=== PATIENT | female | born 1995 | race Two or more races ===

== ENCOUNTER 2017-08-23 15:20 | Emergency (ER) | payer MEDICAID ==
[~2017-08-23] VITALS: Ht 160 cm; Wt 77.1 kg
[~2017-08-23 15:20] MED LIST: BLOO-668 IN; METF500T4 PO
[2017-08-23 15:31] VITALS: BP 139/80
[2017-08-23] MEDS ORDERED: LIDOCAINE/PRILOCAINE (5GM) 5 GM TUBE TP ONE ×2 (16:30→17:02)
== END 2017-08-23 17:42 | disposition home or self-care (01) ==
LOC: ER 15:24
DX: N89.8 Other specified noninflammatory disorders of vagina (principal); N82.8 Other female genital tract fistulae; E11.9 Type 2 diabetes mellitus without complications; Z86.19 Personal history of other infectious and parasitic diseases; Z88.0 Allergy status to penicillin; Z79.84 Long term (current) use of oral hypoglycemic drugs
CPT/HCPCS: 36415; 87210; 87491; 87591; 99284; A4606; Z7610

== ENCOUNTER 2017-08-26 05:57 | Emergency (ER) | payer MEDICAID ==
[~2017-08-26] VITALS: Ht 160 cm; Wt 79.4 kg
--- NOTE | 2017-08-26 06:05 | NUR ---
PT PRESENTED TO THE ER WITH A C/O VAGINAL PAIN, DISCHARGE, AND SORES SINCE THURSDAY. 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
[2017-08-26] MEDS ORDERED: HYDROMORPHONE INJ 2 MG/ML DISP.SYRIN ONE (06:15)
[2017-08-26] MEDS ORDERED: ONDANSETRON HCL/PF 4 MG/2 ML VIAL ONE (06:16)
--- NOTE | 2017-08-26 06:18 | NUR ---
DR. RAMÍREZ IS AT THE BEDSIDE EXAMINING THE PT. Female hand violin maker accompanied female patient for DR. RAMÍREZ.
[2017-08-26] MEDS ORDERED: ONDANSETRON HCL/PF - ER 4 MG/2 ML VIAL IV ONE (06:30)
[2017-08-26] MEDS ORDERED: HYDROMORPHONE 1 MG/1 ML DISP.SYRIN IV ONE (06:30)
--- NOTE | 2017-08-26 06:33 | NUR ---
20G IV STARTED IN LT HAND.
--- NOTE | 2017-08-26 06:54 | NUR ---
IV removed. Catheter intact and site benign. Pressure and 4x4 applied to site. No bleeding noted.Patient discharged to home in stable condition. Written and verbal after care instructions given. Patient verbalizes understanding of instruction. PT AMBULATED TO THE BATHROOM WITH A STEADY GAIT. VSS.
[2017-08-26 06:58] VITALS: BP 116/82
== END 2017-08-26 07:19 | disposition home or self-care (01) ==
LOC: ER 05:57
DX: A60.00 Herpesviral infection of urogenital system, unspecified (principal); E11.9 Type 2 diabetes mellitus without complications; Z88.0 Allergy status to penicillin
CPT/HCPCS: 96374; 96375; 99284; A4606; J1170; J2405 ×2; Z7610

== ENCOUNTER 2017-08-26 16:31 | Emergency (ER) | payer MEDICAID ==
[~2017-08-26] VITALS: Ht 160 cm; Wt 79.4 kg
[2017-08-26 17:06] VITALS: BP 150/94
[2017-08-26] MEDS ORDERED: HYDROMORPHONE INJ 2 MG/ML DISP.SYRIN ONE (17:12)
[2017-08-26] MEDS ORDERED: HYDROMORPHONE 1 MG/1 ML DISP.SYRIN IM ONE (17:30)
== END 2017-08-26 17:38 | disposition home or self-care (01) ==
LOC: ER 16:34
DX: A60.00 Herpesviral infection of urogenital system, unspecified (principal); R10.2 Pelvic and perineal pain; E11.9 Type 2 diabetes mellitus without complications; Z88.0 Allergy status to penicillin; Z79.84 Long term (current) use of oral hypoglycemic drugs; E66.8 Other obesity
CPT/HCPCS: 96372; 99283; A4606; J1170; Z7610

== ENCOUNTER 2018-07-25 13:10 | Inpatient (IN) | payer MEDICAID, OTHER ==
[~2018-07-25] VITALS: Ht 157.5 cm; Wt 83.9 kg
[~2018-07-25 13:10] MED LIST changes: +METF-440 PO; -METF500T4 PO
[2018-07-25] MEDS ORDERED: FAMOTIDINE/PF INJ 20 MG/2 ML VIAL IV ONE ×2 (13:30→13:34)
[2018-07-25] MEDS ORDERED: MORPHINE SULFATE INJ 2 MG/ML DISP.SYRIN IV ONE (13:30)
[2018-07-25] MEDS ORDERED: IV NS 0.9% 1,000 ML BAG IV ONE (13:30)
[2018-07-25] MEDS ORDERED: ONDANSETRON HCL/PF 4 MG/2 ML VIAL IVP ONE (13:30)
[2018-07-25] MEDS ORDERED: MORPHINE SULFATE INJ 4 MG/ML DISP.SYRIN ONE ×2 (13:33)
[2018-07-25] MEDS ORDERED: ONDANSETRON HCL/PF 4 MG/2 ML VIAL ONE ×2 (13:34→17:05)
[2018-07-25 13:37] LABS: BASOPHILS # (AUTO) 0.1 /CMM (0.0-0.2); BASOPHILS % (AUTO) 0.7 % (0.0-2.0); EOSINOPHILS % (AUTO) 0.2 % (0.0-6.0); HEMATOCRIT 47 % (33-45); HEMOGLOBIN 15.8 g/dL (11.5-14.8); LYMPHOCYTES # (AUTO) 0.9 /CMM (0.8-4.8); LYMPHOCYTES % (AUTO) 7.2 % (20.0-44.0); MEAN CORPUSCULAR HGB CONC 33 g/dl (31.0-36.0); MEAN CORPUSCULAR VOLUME 84 fL (82-100); MONOCYTES # (AUTO) 0.2 /CMM (0.1-1.30); MONOCYTES % (AUTO) 1.8 % (2.0-12.0); NEUTROPHILS # (AUTO) 11.5 /CMM (1.8-8.9); NEUTROPHILS % (AUTO) 90.1 % (43.0-81.0); PLATELET COUNT (AUTO) 240 /CMM (150-450); RED BLOOD CELL COUNT(AUTO) 5.64 MIL/uL (4.0-5.2); WHITE BLOOD COUNT (AUTO) 12.7 K/uL (4.3-11.0)
[2018-07-25 13:45] LABS: BILIRUBIN,URINE SMALL (NEGATIVE); BLOOD, URINE Large Ery/uL (NEGATIVE); COLOR,URINE Dark (YELLOW); KETONES,URINE >=160 (NEGATIVE); LEUKOCYTE ESTERASE ,URINE Negative (NEGATIVE); NITRITE, URINE Negative (NEGATIVE); PROTEIN,URINE Negative (NEGATIVE); UGLUCOSE 500 MG/DL mg/dL (NEGATIVE); UROBILINOGEN,URINE 0.2 EU/dL (0.2)
[2018-07-25 13:51] LABS: ALBUMIN 3.7 g/dL (3.4-5.0); APPEARANCE,URINE Clear (CLEAR); BILIRUBIN,DIRECT 0.3 mg/dL (0.0-0.2); BILIRUBIN,TOTAL 2.4 mg/dL (0.2-1.0); CALCIUM, SERUM 8.6 mg/dL (8.5-10.1); CREATININE 0.6 mg/dL (0.6-1.3); POTASSIUM 3.7 mmol/L (3.5-5.1); TOTAL PROTEIN, SERUM 7.8 g/dL (6.4-8.2)
--- NOTE | 2018-07-25 13:52 | NUR ---
c/o diffuse abdominal pain, nausea and vomiting x last night. PT AAOX3, VSS. PT STS SHE'S UNABLE TO KEEP ANYTHING SINCE LAST NIGHT. DENIES CP, SOB, DIZZINESS, DIARRHEA @ THIS TIME. PT SEEN & EVAL'D BY LUCINDA ARIAS. MEDICATED FOR PAIN & NAUSEA. WILL CONT TO MONITOR.
[2018-07-25 13:58] LABS: BACTERIA,URINE Few /HPF (None Seen); SQUAMOUS EPITHELIAL CELL,UR Few /HPF (None Seen); WBC,URINE 0-2 /HPF (0-3)
--- NOTE | 2018-07-25 15:58 | NUR ---
Spoke with nursing incinerator plant general supervisor to requisition and Med-surg bed for choledocholithiasis. She informed me that she would call back. Call to admitting physician pending.
[2018-07-25] MEDS ORDERED: IOHEXOL-300 100 ML VIAL IV ONE (16:11)
[2018-07-25] MEDS ORDERED: CT SWABBABLE VALVE TRANS SET 1 EA INFUS.SET MC ONE (16:12)
[2018-07-25] MEDS ORDERED: IV NS 0.9% 250 ML IV ONE (16:12)
[2018-07-25] MEDS ORDERED: FLUO40CA8 PO (16:27)
[2018-07-25] MEDS ORDERED: INSU100V27 SQ (16:27)
--- NOTE | 2018-07-25 16:30 | NUR ---
Called [facility] medical group and spoke with Enrique who got me conntected to Dr. Easton. FWDed call to Arianna Loera PA-C. She discussed the case with Dr. Easton who accepted the patient for admission. The patient has a bed at 306-1
[2018-07-25] MEDS ORDERED: LEVOFLOXACIN 750 MG /D5W 150ML 150 ML IV ONE (17:00)
[2018-07-25] MEDS ORDERED: METRONIDAZOLE 500MG/ NS 100ML 100 ML IV ONE (17:00)
[2018-07-25] MEDS ORDERED: Z GUARD REMEDY 2 OZ OINT TP PRN (17:00)
[2018-07-25] MEDS ORDERED: ACETAMINOPHEN 325 MG TABLET PO PRN (17:00)
[2018-07-25] MEDS ORDERED: MAG HYDROX/AL HYDROX/SIMETH 30 ML UDC PO PRN (17:00)
[2018-07-25] MEDS ORDERED: ZOLPIDEM TARTRATE 5 MG TABLET PO PRN (17:00)
[2018-07-25] MEDS ORDERED: MAGNESIUM HYDROXIDE 30 ML UDC PO PRN (17:00)
[2018-07-25] MEDS ORDERED: ONDANSETRON HCL/PF 4 MG/2 ML VIAL IVP PRN (17:00)
--- NOTE | 2018-07-25 17:07 | NUR ---
Report given to Tootie ELLIS for continuity of care on MS unit.
[2018-07-25 17:15] VITALS: BP 118/71
[2018-07-25] MEDS ORDERED: DEXTROSE 50%-WATER 50 ML DISP.SYRIN IV PRN (17:30)
[2018-07-25] MEDS ORDERED: diphenhydrAMINE HCL 50 MG/ML VIAL IV PRN (17:30)
[2018-07-25] MEDS ORDERED: PROCHLORPERAZINE EDISYLATE 10 MG/2 ML VIAL IVP PRN (17:30)
[2018-07-25] MEDS ORDERED: INSULIN REGULAR, HUMAN 100 UNIT/ML 3 ML VIAL SQ PRN (17:30)
[2018-07-25] MEDS ORDERED: ONDANSETRON HCL/PF 4 MG/2 ML VIAL IV PRN (17:30)
[2018-07-25] MEDS ORDERED: *INSULIN REGULAR(HUMULIN R)HUM 100 UNIT/ML VIAL SQ PRN (17:30)
--- NOTE | 2018-07-25 17:30 | NUR ---
MS AGRICULTURAL TECHNICAL OFFICER NOTE PT ARRIVED VIA WHEELCHAIR IN STABLE CONDITION ACCOMPANIED BY ER STAFF. PT IS A/O X4, AFEBRILE. RESPIRATIONS ARE EVEN AND UNLABORED, NOT IN ANY ACUTE DISTRESS NOTED. PUPILS ARE REACTIVE TO LIGHT. BILATERAL HAND TERRA COTTA ROOFER ARE STRONG AND EQUAL. ABDOMEN IS SOMEWHAT TENDER TO RIGHT QUADRANTS, C/O PAIN 6/10. DENIES ANY BLADDER DISCOMFORT. PT IS AMBULATORY AND CONTINENT. LAST BM 07/24/18. IV ACCESS TO LAC 20G, NO INFILTRATION NOTED. DRESSING KEPT CLEAN AND DRY. ID BANDS ARE PLACED. DR. BEY MADE AWARE OF ADMISSION. INSTRUCTED PT TO USE CALL LIGHT WHEN ASSISTANCE IS NEEDED, CALL LIGHT IS LEFT WITHIN REACH. SAFETY MEASURES ARE IN PLACE. WILL CONTINUE TO MONITOR THROUGHOUT SHIFT.
[2018-07-25] MEDS: IV NS 0.9% 1,000 ML IV PRN (17:32)
--- NOTE | 2018-07-25 17:38 | NUR ---
LEVAQUIN 750 MG IVPB NOT GIVEN, ENDORSED TO CALEB SHAY & WILL START ABX IN FLOOR.
[2018-07-25] MEDS: BLOOD SUGAR DIAGNOSTIC 1 EACH STRIP VI SCH ×2 (17:41→22:03)
--- NOTE | 2018-07-25 19:30 | NUR ---
RN MS OPENING NOTES RECEIVED PATIENT IN BED AWAKE. ALERT AND ORIENTED X4, VERBALLY RESPONSIVE, ABLE TO MAKE NEEDS KNOWN. BREATHING EVEN AND UNLABORED. NO SOB NOTED. TOLERATING ROOM AIR. WITH COMPLAINTS OF PAIN IN THE ABDOMEN 04/13 - WILL CLARIFY WITH MD REGARDING NPO STATUS EXCEPT MEDS SINCE PATIENT ONLY HAS NORCO FOR PAIN MANAGEMENT. IV ACCESS ON THE LEFT AC#20 INTACT AND PATENT WITH NS RUNNING AT 75ML/HR. SKIN DRY AND WARM TO TOUCH. AFEBRILE. ALL OTHER NEEDS ATTENDED TO. SAFETY MEASURES IN PLACE. CALL LIGHT WITHIN REACH. WILL CONTINUE TO MONITOR.
--- NOTE | 2018-07-25 19:41 | NUR ---
MS RN CLOSING NOTES NEEDS MET AND ANTICIPATED. PT REMAINS A/O X4, AFEBRILE. RESPIRATIONS ARE EVEN AND UNLABORED, NOT IN ANY ACUTE DISTRESS NOTED. NO C/O SOB, N/V. PT STATES "PAIN IS TOLERABLE, BUT MAY NEED SOME LATER." IV SITE INTACT, NO INFILTRATION NOTED. DRESSING KEPT CLEAN AND DRY. PT WAS SEEN BY DR. QUESADA W/ ORDERS FOR HIDA SCAN AND KEEP PT NPO. ENDORSED TO NEXT SHIFT FOR CONTINUITY OF CARE.
[2018-07-25 20:00] VITALS: BP 117/66
--- NOTE | 2018-07-25 20:02 | NUR ---
RN MS NOTES CLARIFIED WITH DR. QUESADA REGARDING NPO STATUS. INFORMED DR. QUESADA THAT PATIENT WILL LIKELY ASK FOR NORCO. PER DR. QUESADA, PATIENT IS TO BE NPO EXCEPT MEDS. ORDER NOTED AND CARRIED OUT.
--- NOTE | 2018-07-25 20:25 | NUR ---
RN NOTES RECEIVED PT. FROM ANOTHER NURSE, PT IS A/OX4, AMBULATORY, IV FLUID NS RUNNING @ 75ML/HR, DENIES PAIN AT THIS TIME NO SOB CALL LIGHT WITHIN REACH, [id number], WILL CONTINUE TO MONITOR
[2018-07-25] MEDS: HYDROCODONE/APAP 5/325MG 1 EACH TABLET PO PRN (20:30)
--- NOTE | 2018-07-25 20:33 | NUR ---
RN NOTES COMPLAINED OF ABDOMINAL PAIN- NORCO 5/325MG PO GIVEN ORDERED, V/S STABLE
[2018-07-26] MEDS: METRONIDAZOLE 500MG/ NS 100ML 500 MG in PREMIX 1 EA IV SCH ×3 (00:25→16:00)
[2018-07-26 06:20] LABS: BASOPHILS % (AUTO) 0.3 % (0.0-2.0); EOSINOPHILS % (AUTO) 1.9 % (0.0-6.0); HEMATOCRIT 41 % (33-45); HEMOGLOBIN 13.7 g/dL (11.5-14.8); LYMPHOCYTES # (AUTO) 1.5 /CMM (0.8-4.8); LYMPHOCYTES % (AUTO) 22.7 % (20.0-44.0); MEAN CORPUSCULAR HGB CONC 33 g/dl (31.0-36.0); MEAN CORPUSCULAR VOLUME 86 fL (82-100); MONOCYTES # (AUTO) 0.6 /CMM (0.1-1.30); MONOCYTES % (AUTO) 9.2 % (2.0-12.0); NEUTROPHILS # (AUTO) 4.3 /CMM (1.8-8.9); NEUTROPHILS % (AUTO) 65.9 % (43.0-81.0); PLATELET COUNT (AUTO) 209 /CMM (150-450); RED BLOOD CELL COUNT(AUTO) 4.83 MIL/uL (4.0-5.2); WHITE BLOOD COUNT (AUTO) 6.6 K/uL (4.3-11.0)
[2018-07-26 06:22] LABS: ALBUMIN 2.8 g/dL (3.4-5.0); BILIRUBIN,TOTAL 1.3 mg/dL (0.2-1.0); CREATININE 0.5 mg/dL (0.6-1.3); MAGNESIUM 1.5 mg/dL (1.8-2.4); PHOSPHORUS 2.6 mg/dL (2.5-4.9); POTASSIUM 3.4 mmol/L (3.5-5.1); TOTAL PROTEIN, SERUM 6.4 g/dL (6.4-8.2)
--- NOTE | 2018-07-26 06:44 | NUR ---
RN NOTES PT. IS SLEEPING BUT AROUSABLE, DENIES PAIN, NO SOB, CALL LIGHT WITHIN REACH, [id number], PT. NEEDS ATTENDED
--- NOTE | 2018-07-26 07:39 | NUR ---
MS RN OPENING NOTES RECEIVED PT LAYING IN BED, SLEEPING COMFORTABLY, EASILY AROUSABLE. PT REMAINS A/O X4, AFEBRILE. RESPIRATIONS ARE EVEN AND UNLABORED, NOT IN ANY ACUTE DISTRESS NOTED. NO C/O SOB, N/V. IV SITE INTACT, NO INFILTRATION NOTED. DRESSING KEPT CLEAN AND DRY. INSTRUCTED PT TO USE CALL LIGHT WHEN ASSISTANCE IS NEEDED, CALL LIGHT IS LEFT WITHIN REACH. WILL CONTINUE TO MONITOR THROUGHOUT SHIFT FOR CONTINUITY OF CARE.
[2018-07-26 07:59] VITALS: BP 107/70
[2018-07-26] MEDS: BLOOD SUGAR DIAGNOSTIC 1 EACH STRIP VI SCH ×4 (07:59→21:58)
[2018-07-26 08:00] VITALS: BP 107/70
[2018-07-26] MEDS: POTASSIUM CL. PREMIX PERIPHER. 50 ML IV SCH ×4 (08:00→15:44)
[2018-07-26] MEDS: HYDROCODONE/APAP 5/325MG 1 EACH TABLET PO PRN ×2 (08:30→16:31)
[2018-07-26] MEDS: Magnesium 1GM/D5W 100ML PREMIX 100 ML IV SCH ×2 (09:00→11:09)
--- NOTE | 2018-07-26 11:05 | NUR ---
MS RN NOTES-- PT P/U BY RADIOLOGY FOR HIDA SCAN VIA WHEELCHAIR IN STABLE CONDITION.
--- NOTE | 2018-07-26 12:47 | NUR ---
MS RN NOTES-- PT CAME BACK FROM RADIOLOGY IN STABLE CONDITION. PER BEN, IT IS NEGATIVE. NOTIFIED DR. QUESADA RE: HIDA SCAN RESULTS.
--- NOTE | 2018-07-26 13:12 | NUR ---
MS RN NOTES-- NPO TO LOW FAT DIET PER DR. QUESADA.
[2018-07-26] MEDS: IV NS 0.9% 1,000 ML IV PRN (15:13)
[2018-07-26 15:57] VITALS: BP 107/60
[2018-07-26] MEDS: ONDANSETRON HCL/PF 4 MG/2 ML VIAL IV PRN (16:34)
[2018-07-26] MEDS ORDERED: LEVOFLOXACIN 500 MG /D5W 100ML 500 MG in PREMIX 1 EA IV SCH (17:00)
--- NOTE | 2018-07-26 18:25 | NUR ---
MS RN CLOSING NOTES ALL DUE MEDS GIVEN, NEEDS MET AND RENDERED. PT REMAINS A/O X4, AFEBRILE. RESPIRATIONS ARE EVEN AND UNLABORED, NOT IN ANY ACUTE DISTRESS NOTED. NO C/O SOB, N/V. INSERTED NEW PERIPHERAL IV SITE TO RIGHT HAND, DRESSING KEPT CLEAN AND DRY. INFUSING FLUIDS, TOLERATING WELL. REMINDED PT TO USE CALL LIGHT IS LEFT WITHIN REACH. WILL ENDORSE TO NEXT SHIFT FOR CONTINUITY OF CARE.
--- NOTE | 2018-07-26 19:25 | NUR ---
MS/RN NOTES RECEIVED PT. LYING IN BED. PT. IS AWAKE, ALERT AND ORIENTED X4. BREATHING EVEN AND UNLABORED ON ROOM AIR. NO SOB, RESPIRATORY DISTRESS OR COMPLAINTS OF PAIN NOTED AT THIS TIME. NO COMPLAINTS OF NAUSEA OR VOMITING NOTED AT THIS TIME. PT. WITH RIGHT HAND 20 GAUGE PERIPHERAL IV PRESENT, PATENT AND INTACT ADMINISTERING TO PT. NS @ 75 ML/HR. PER DAYSHIFT NURSE PT. WILL BE NPO AFTER MIDNIGHT PENDING EGD TOMORROW. CONSENT SIGNED AND PLACED IN PT. CHART. BED LOCKED AND IN LOWEST POSITION, SIDE RAILS UP X2, CALL LIGHT WITHIN REACH, WILL CONTINUE TO MONITOR.
[2018-07-26 20:01] VITALS: BP 116/77
[2018-07-27] MEDS: METRONIDAZOLE 500MG/ NS 100ML 500 MG in PREMIX 1 EA IV SCH ×2 (00:47→08:39)
[2018-07-27] MEDS: ONDANSETRON HCL/PF 4 MG/2 ML VIAL IV PRN ×2 (00:47→10:26)
[2018-07-27 07:17] LABS: INR 0.97 (0.87-1.13)
[2018-07-27] MEDS: BLOOD SUGAR DIAGNOSTIC 1 EACH STRIP VI SCH ×2 (07:48→12:00)
--- NOTE | 2018-07-27 07:58 | NUR ---
MS/RN NOTES PT. IS LYING IN BED RESTING. BREATHING EVEN AND UNLABORED ON ROOM AIR. NO SOB, RESPIRATORY DISTRESS OR COMPLAINTS OF PAIN NOTED AT THIS TIME. PT. WITH RIGHT HAND 20 GAUGE PERIPHERAL IV PRESENT, PATENT AND INTACT ADMINISTERING TO PT. NS @ 75 ML/HR. PT. REMAINS NPO SINCE MIDNIGHT PENDING EGD TODAY. ALL PT. NEEDS MET. BED LOCKED AND IN LOWEST POSITION, SIDE RAILS UP X2, CALL LIGHT WITHIN REACH, WILL ENDORSE TO DAYSHIFT NURSE FOR CONTINUITY OF CARE.
[2018-07-27 08:00] VITALS: BP 111/78
--- NOTE | 2018-07-27 08:00 | NUR ---
m/s aluminizer: initial assessment received pt in bed asleep, but easily arousable. remains npo, pt for egd this afternoon. pt for d'c planning and pt aware. instructed to call for assistance. will continue to monitor.
--- NOTE | 2018-07-27 09:00 | NUR ---
m/s welding machine operator resistance: md visit seen and examined by dr. edmonds at this time. informed pt by re: d'c planning today after egd, pt verbalized understanding. pt remains npo. pt refusing iv fluids. instructed to call for assistance. will monitor.
--- NOTE | 2018-07-27 12:20 | NUR ---
m/s corn husk baler: notes taken down to o.r. via bed at this time with chart.
[2018-07-27] MEDS ORDERED: PANT40TA2 PO (12:53)
[2018-07-27 13:35] VITALS: BP 97/61
--- NOTE | 2018-07-27 13:35 | NUR ---
m/s screw down: notes received pt from recovery room with dx: s/p egd with findings: gastritis, duodenitis, and gastric erosion per recovery nurse report at bedside. pt awake, but sleepy. vital signs taken wnl for self. no c/o n/v at this time. lunch served. hob elevated. instructed to call for assistance. will continue to monitor.
--- NOTE | 2018-07-27 13:55 | NUR ---
m/s orthopaedic doctor: notes received order from dr. edmonds to d'c pt after egd if clear by gi. order acknowledged. dr. tolentino (gi) notified and informed him that dr. edmonds wants to discharge pt home today if clear by you, stated, "yes she can go, she can take ppi everyday." will continue to monitor.
--- NOTE | 2018-07-27 14:30 | NUR ---
m/s fitness centre manager: notes pt aware of d'c planning today, but wants to rest a bit and will go home in a couple of hours as stated. instructed to call for assistance. will monitor.
[2018-07-27 16:00] VITALS: BP_SYST 108; BP_SYST 143; BP_DIAS 66; BP_DIAS 85
--- NOTE | 2018-07-27 16:25 | NUR ---
m/s stage set designer: d'c instructions discharged instructions given to pt with prescription and educated pt to avoid milk products and nsaids medications; pt verbalized understanding. pt will f/u with her primary medical doctor and the need for outpatient procedure for elective cholecystectomy as stated. h/l removed with tip intact with no bleeding, no redness, and no swelling noted. awaiting for friend to pick her up.
--- NOTE | 2018-07-27 17:00 | NUR ---
m/s milk deliverer: discharged discharged home in stable condition accompanied by family via private car.
== END 2018-07-27 17:00 | disposition home or self-care (01) ==
LOC: ER 13:12 → MED 16:56
PROVIDERS: ADMIT Internal Medicine; ATTEND Internal Medicine
DX: K80.12 Calculus of gallbladder with acute and chronic cholecystitis without obstruction (principal); K76.0 Fatty (change of) liver, not elsewhere classified; E10.9 Type 1 diabetes mellitus without complications; E66.9 Obesity, unspecified; E78.5 Hyperlipidemia, unspecified; D72.829 Elevated white blood cell count, unspecified; F43.10 Post-traumatic stress disorder, unspecified; Z68.33 Body mass index [BMI] 33.0-33.9, adult; K29.70 Gastritis, unspecified, without bleeding; Z88.0 Allergy status to penicillin; K21.9 Gastro-esophageal reflux disease without esophagitis; K29.80 Duodenitis without bleeding; K25.9 Gastric ulcer, unspecified as acute or chronic, without hemorrhage or perforation; F60.3 Borderline personality disorder
CPT/HCPCS: 36415; 76705-TC; 78226; 80048-TC; 80053-TC; 80076-TC; 81000-TC; 82962-TC; 83690-TC; 83735-TC; 84100-TC; 84702-TC; 84703-TC; 85025-TC; 85610-TC; 85730-TC; 87081-TC; 88305-TC; 88313-TC; 88342; A4216; A4606; A9537; G0378; J0780; J1815; J1956; J2270; J2405; J3475; J3480; J3490; J7030; J7050; Q9967; Z7610

== ENCOUNTER 2019-09-09 20:31 | Emergency (ER) | payer OTHER ==
[~2019-09-09] VITALS: Ht 157.5 cm; Wt 83.9 kg
[~2019-09-09 20:31] MED LIST changes: -BLOO-668 IN; +FLUO40CA8 PO; +INSU100V27 SQ; +PANT40TA2 PO
--- NOTE | 2019-09-09 20:35 | NUR ---
PT CAME INTO THE ED C/O DIZZINESS X 3 DAYS AND HEADACHE. PER PT SHE IS 5-6 WEEKS . PT AAOX4, VSS, BREATHING EVEN AND UNLABORED ON ROOM AIR W/ NAD. PT CONNECTED TO THE MONITOR AND POX
--- NOTE | 2019-09-09 20:40 | NUR ---
AWAITING FOR MD OBREGON
[2019-09-09] MEDS ORDERED: ONDANSETRON HCL/PF 4 MG/2 ML VIAL ONE (22:44)
[2019-09-09 22:56] LABS: BASOPHILS # (AUTO) 0.1 /CMM (0.0-0.2); BASOPHILS % (AUTO) 1.3 % (0.0-2.0); EOSINOPHILS % (AUTO) 1.8 % (0.0-6.0); HEMATOCRIT 39 % (33-45); HEMOGLOBIN 12.9 g/dL (11.5-14.8); LYMPHOCYTES % (AUTO) 34.1 % (20.0-44.0); MEAN CORPUSCULAR HGB CONC 34 g/dl (31.0-36.0); MEAN CORPUSCULAR VOLUME 85 fL (82-100); MONOCYTES # (AUTO) 0.7 /CMM (0.1-1.30); MONOCYTES % (AUTO) 7.7 % (2.0-12.0); NEUTROPHILS # (AUTO) 4.9 /CMM (1.8-8.9); NEUTROPHILS % (AUTO) 55.1 % (43.0-81.0); PLATELET COUNT (AUTO) 259 /CMM (150-450); RED BLOOD CELL COUNT(AUTO) 4.52 MIL/uL (4.0-5.2)
[2019-09-09] MEDS ORDERED: IV NS 0.9% 1,000 ML BAG IV ONE (23:00)
[2019-09-09] MEDS ORDERED: ONDANSETRON HCL/PF 4 MG/2 ML VIAL IV ONE (23:00)
[2019-09-09 23:12] LABS: APPEARANCE,URINE Clear (CLEAR); BILIRUBIN,URINE Negative (NEGATIVE); BLOOD, URINE Negative Ery/uL (NEGATIVE); COLOR,URINE Yellow (YELLOW); KETONES,URINE Negative (NEGATIVE); LEUKOCYTE ESTERASE ,URINE Negative (NEGATIVE); NITRITE, URINE Negative (NEGATIVE); PROTEIN,URINE Negative (NEGATIVE); UGLUCOSE 100 MG/DL mg/dL (NEGATIVE); UROBILINOGEN,URINE 0.2 EU/dL (0.2)
[2019-09-09 23:13] LABS: ALBUMIN 3.3 g/dL (3.4-5.0); BILIRUBIN,DIRECT 0.1 mg/dL (0.0-0.2); BILIRUBIN,TOTAL 0.7 mg/dL (0.2-1.0); CREATININE 0.5 mg/dL (0.6-1.3); POTASSIUM 3.9 mmol/L (3.5-5.1); TOTAL PROTEIN, SERUM 6.9 g/dL (6.4-8.2)
--- NOTE | 2019-09-10 00:32 | NUR ---
IV removed. Catheter intact and site benign. Pressure and 4x4 applied to site. No bleeding noted. Patient discharged to home in stable condition. Written and verbal after care instructions given. Patient verbalizes understanding of instruction. ambulatory with a steady gait noted. pt aaox4 no acute distress noted, resp even and unlabored.
[2019-09-10 03:00] VITALS: BP 127/64
== END 2019-09-10 00:32 | disposition home or self-care (01) ==
LOC: ER 20:33
DX: O26.891 Other specified pregnancy related conditions, first trimester (principal); O21.9 Vomiting of pregnancy, unspecified; G43.909 Migraine, unspecified, not intractable, without status migrainosus; E11.9 Type 2 diabetes mellitus without complications; Z88.0 Allergy status to penicillin; Z79.4 Long term (current) use of insulin; Z79.899 Other long term (current) drug therapy; Z3A.01 Less than 8 weeks gestation of pregnancy
CPT/HCPCS: 36415; 80048; 80076; 81001; 85025; 96361; 96374; 99283; J2405; J7030; 81000-TC

== ENCOUNTER 2021-03-27 11:55 | Emergency (ER) | payer OTHER ==
[~2021-03-27] VITALS: Ht 165.1 cm; Wt 70.8 kg
--- NOTE | 2021-03-27 12:15 | NUR ---
SENT HERE [facility] FOR FURTHER EVAL AND TREATMENT,C/O NAUSEA/VOMITING AND ELEVATED BLOOD SUGAR. PATIENT A/OX4, AMBULATORY, NO DISTRESS NOTED. ASSISTED TO BED 4.
[2021-03-27] MEDS ORDERED: IV NS 0.9% 1,000 ML BAG IV ONE (12:30)
[2021-03-27] MEDS ORDERED: ONDANSETRON HCL/PF 4 MG/2 ML VIAL IVP ONE (12:30)
[2021-03-27 12:34] LABS: BILIRUBIN,URINE Negative (NEGATIVE); COLOR,URINE YELLOW (YELLOW); LEUKOCYTE ESTERASE ,URINE Negative (NEGATIVE); NITRITE, URINE Negative (NEGATIVE); PH,URINE 5.5 (5.0-8.0); PROTEIN,URINE Negative (NEGATIVE); UGLUCOSE >=1000 mg/dL (NEGATIVE); UROBILINOGEN,URINE 0.2 EU/dL (0.2)
[2021-03-27 12:36] LABS: BACTERIA,URINE Few /HPF (None Seen); SQUAMOUS EPITHELIAL CELL,UR Few /HPF (None Seen)
[2021-03-27] MEDS ORDERED: ONDANSETRON HCL/PF 4 MG/2 ML VIAL ONE (12:43)
--- NOTE | 2021-03-27 12:50 | NUR ---
IV LINE ESTABLISHED, BLOOD DRAWN AND SENT TO LAB. IV FLUIDS INITIATED.
[2021-03-27 12:54] LABS: BASOPHILS # (AUTO) 0.1 /CMM (0.0-0.2); BASOPHILS % (AUTO) 0.6 % (0.0-2.0); EOSINOPHILS % (AUTO) 1.2 % (0.0-6.0); HEMATOCRIT 38 % (33-45); HEMOGLOBIN 12.6 g/dL (11.5-14.8); LYMPHOCYTES # (AUTO) 2.3 /CMM (0.8-4.8); LYMPHOCYTES % (AUTO) 25.2 % (20.0-44.0); MEAN CORPUSCULAR HGB CONC 33 g/dl (31.0-36.0); MEAN CORPUSCULAR VOLUME 82 fL (82-100); MONOCYTES # (AUTO) 0.6 /CMM (0.1-1.30); MONOCYTES % (AUTO) 6.1 % (2.0-12.0); NEUTROPHILS # (AUTO) 6.2 /CMM (1.8-8.9); NEUTROPHILS % (AUTO) 66.9 % (43.0-81.0); PLATELET COUNT (AUTO) 227 /CMM (150-450); RED BLOOD CELL COUNT(AUTO) 4.67 MIL/uL (4.0-5.2); WHITE BLOOD COUNT (AUTO) 9.3 K/uL (4.3-11.0)
[2021-03-27 13:08] LABS: ALBUMIN 3.8 g/dL (3.4-5.0); BILIRUBIN,DIRECT 0.3 mg/dL (0.0-0.2); BILIRUBIN,TOTAL 1.4 mg/dL (0.2-1.0); CALCIUM, SERUM 9.1 mg/dL (8.5-10.1); CREATININE 0.6 mg/dL (0.6-1.3); TOTAL PROTEIN, SERUM 7.2 g/dL (6.4-8.2)
--- NOTE | 2021-03-27 13:20 | NUR ---
US TECH AT BEDSIDE
--- NOTE | 2021-03-27 13:50 | NUR ---
CALLED RT FOR ABG.
[2021-03-27 13:57] LABS: ABG BASE EXCESS -3.8 mmol/L; ABG PH 7.387 (7.350-7.450); ABG PO2 94.2 mmHg (75.0-100.0); AaDO2 13.6 mmHg; COHb 0.5 % (0.5-1.5); MetHb 0.3 % (0.0-1.5); O2Hb 96.2 % (94.0-97.0); SITE, ABG Right Brachial; VENT MODE, BG ROOM AIR
[2021-03-27] MEDS ORDERED: ONDA4TAB11 PO (14:06)
--- NOTE | 2021-03-27 14:29 | NUR ---
Patient a/ox4, breathing even and unlabored, no sob noted, needs attended. Denies pain and discomfort. IV removed. Catheter intact and site benign. Pressure and 4x4 applied to site. No bleeding noted.Patient discharged to home in stable condition. Written and verbal after care instructions given. Patient verbalizes understanding of instruction.
[2021-03-27 14:31] VITALS: BP 131/75
== END 2021-03-27 14:31 | disposition home or self-care (01) ==
LOC: ER 12:10
DX: E11.65 Type 2 diabetes mellitus with hyperglycemia (principal); I10 Essential (primary) hypertension; E05.90 Thyrotoxicosis, unspecified without thyrotoxic crisis or storm; Z98.890 Other specified postprocedural states; Z88.0 Allergy status to penicillin; Z79.899 Other long term (current) drug therapy; Z79.84 Long term (current) use of oral hypoglycemic drugs
CPT/HCPCS: 36415; 36600 ×2; 76705; 80048; 80076; 81001; 82803; 83690; 84703; 85025; 96361; 96374; 99284; J2405; J7030

== ENCOUNTER 2021-04-28 09:24 | Emergency (ER) | payer OTHER ==
[~2021-04-28] VITALS: Ht 160 cm; Wt 81.6 kg
[~2021-04-28 09:24] MED LIST changes: +ONDA4TAB11 PO
[2021-04-28] MEDS ORDERED: ONDANSETRON HCL/PF 4 MG/2 ML VIAL IVP ONE (10:00)
[2021-04-28] MEDS ORDERED: IV NS 0.9% 1,000 ML BAG IV ONE (10:00)
--- NOTE | 2021-04-28 10:00 | NUR ---
THE PATIENT BIBS FOR C/O DIARRHEA, ABDOMINAL CRAMPING, DYSURIA X 4 DAYS. ABDOMEN SOFT AND NON-DISTENDED. WILL CONTINUE TO MONITOR THE PATIENT.
[2021-04-28 10:22] LABS: BASOPHILS # (AUTO) 0.1 K/uL (0.0-0.2); BASOPHILS % (AUTO) 0.7 % (0.0-2.0); HEMATOCRIT 37 % (33-45); HEMOGLOBIN 12.2 g/dL (11.5-14.8); LYMPHOCYTES # (AUTO) 1.9 K/uL (0.8-4.8); LYMPHOCYTES % (AUTO) 19.4 % (20.0-44.0); MEAN CORPUSCULAR HGB CONC 33 g/dl (31.0-36.0); MEAN CORPUSCULAR VOLUME 81 fL (82-100); MONOCYTES # (AUTO) 0.6 K/uL (0.1-1.30); MONOCYTES % (AUTO) 5.7 % (2.0-12.0); NEUTROPHILS # (AUTO) 7.2 K/uL (1.8-8.9); NEUTROPHILS % (AUTO) 72.2 % (43.0-81.0); PLATELET COUNT (AUTO) 264 K/uL (150-450); RED BLOOD CELL COUNT(AUTO) 4.58 MIL/uL (4.0-5.2); WHITE BLOOD COUNT (AUTO) 9.9 K/uL (4.3-11.0)
[2021-04-28] MEDS ORDERED: ONDANSETRON HCL/PF 4 MG/2 ML VIAL ONE (10:26)
[2021-04-28] MEDS ORDERED: DOXY100C2 PO (10:54)
[2021-04-28] MEDS ORDERED: ONDA4TAB11 PO (10:54)
[2021-04-28 10:59] LABS: CALCIUM, SERUM 8.8 mg/dL (8.5-10.1); CREATININE 0.8 mg/dL (0.6-1.3); POTASSIUM 4.3 mmol/L (3.5-5.1)
[2021-04-28] MEDS ORDERED: CEFTRIAXONE 1GM BAG (ER ONLY) 50 ML IV ONE (10:59)
[2021-04-28] MEDS ORDERED: FLUCONAZOLE (100 MG) 100 MG TABLET ONE (10:59)
[2021-04-28] MEDS ORDERED: INSULIN REGULAR, HUMAN 100 UNIT/ML 10 ML VIAL ONE (10:59)
[2021-04-28] MEDS ORDERED: INSULIN REGULAR, HUMAN 100 UNIT/ML 10 ML VIAL SQ ONE (11:00)
[2021-04-28] MEDS ORDERED: FLUCONAZOLE (100 MG) 100 MG TABLET PO ONE (11:00)
[2021-04-28] MEDS ORDERED: CEFTRIAXONE 1 G in IV D5W 50 ML IV ONE (11:00)
[2021-04-28 11:05] LABS: ALBUMIN 3.5 g/dL (3.4-5.0); BILIRUBIN,DIRECT 0.2 mg/dL (0.0-0.2); BILIRUBIN,TOTAL 0.6 mg/dL (0.2-1.0); TOTAL PROTEIN, SERUM 7.1 g/dL (6.4-8.2)
[2021-04-28 11:45] LABS: BILIRUBIN,URINE NEGATIVE (NEGATIVE); COLOR,URINE YELLOW (YELLOW); LEUKOCYTE ESTERASE ,URINE NEGATIVE (NEGATIVE); NITRITE, URINE NEGATIVE (NEGATIVE); PH,URINE 5.5 (5.0-8.0); PROTEIN,URINE NEGATIVE (NEGATIVE); UGLUCOSE >=1000 mg/dL (NEGATIVE); UROBILINOGEN,URINE 0.2 EU/dL (0.2)
--- NOTE | 2021-04-28 11:57 | NUR ---
ACCUCHECK 301. DR MALLOY AWARE.
[2021-04-28 12:03] LABS: RBC,URINE 0-2 /HPF (0-2)
[2021-04-28 12:04] LABS: BACTERIA,URINE Few /HPF (None Seen); SQUAMOUS EPITHELIAL CELL,UR Moderate /HPF (None Seen); WBC,URINE 0-2 /HPF (0-3)
--- NOTE | 2021-04-28 12:28 | NUR ---
Patient discharged to home in stable condition. Written and verbal after care instructions given. Patient verbalizes understanding of instruction.
[2021-04-28 12:37] VITALS: BP 126/84
== END 2021-04-28 12:37 | disposition home or self-care (01) ==
LOC: ER 09:24
DX: R11.2 Nausea with vomiting, unspecified (principal); R19.7 Diarrhea, unspecified; B37.3 Candidiasis of vulva and vagina; E11.65 Type 2 diabetes mellitus with hyperglycemia; R10.84 Generalized abdominal pain; I10 Essential (primary) hypertension; Z98.890 Other specified postprocedural states; Z88.0 Allergy status to penicillin; Z79.899 Other long term (current) drug therapy; Z79.84 Long term (current) use of oral hypoglycemic drugs
CPT/HCPCS: 36415; 80048; 80076; 81001; 82962 ×2; 83690; 84703; 85025; 87210; 87491; 87591; 96365; 96372; 96375; 99284; J0696; J1815; J2405; J7030; J7060

== ENCOUNTER 2021-12-16 13:26 | Emergency (ER) | payer OTHER ==
[~2021-12-16] VITALS: Ht 167.6 cm; Wt 85.7 kg
[~2021-12-16 13:26] MED LIST changes: +DOXY100C2 PO
[2021-12-16 13:35] VITALS: BP 118/75
[2021-12-16] MEDS ORDERED: LOPE-195 PO (14:19)
[2021-12-16] MEDS ORDERED: ONDA4TAB11 PO (14:19)
[2021-12-16] MEDS ORDERED: SULF1TAB48 PO (14:19)
--- NOTE | 2021-12-16 14:29 | NUR ---
Patient discharged to home in stable condition. Written and verbal after care instructions given. Patient verbalizes understanding of instruction.
== END 2021-12-16 14:30 | disposition home or self-care (01) ==
LOC: ER 13:29
DX: A04.9 Bacterial intestinal infection, unspecified (principal); I10 Essential (primary) hypertension; E11.9 Type 2 diabetes mellitus without complications; E05.90 Thyrotoxicosis, unspecified without thyrotoxic crisis or storm; Z98.890 Other specified postprocedural states; Z88.0 Allergy status to penicillin; Z79.899 Other long term (current) drug therapy; Z79.84 Long term (current) use of oral hypoglycemic drugs; Z79.4 Long term (current) use of insulin

== ENCOUNTER 2022-01-01 20:01 | Emergency (ER) | payer OTHER ==
[~2022-01-01] VITALS: Ht 167.6 cm; Wt 90.3 kg
[~2022-01-01 20:01] MED LIST changes: +LOPE-195 PO; +SULF1TAB48 PO
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
[2022-01-01] MEDS ORDERED: HYDROCODONE/APAP 5/325MG TABLET PO ONE (20:30)
--- NOTE | 2022-01-01 20:36 | NUR ---
XRAYS DONE AT BEDSIDE.
[2022-01-01] MEDS ORDERED: HYDROCODONE/APAP 5/325MG TABLET ONE (20:55)
--- NOTE | 2022-01-01 20:59 | NUR ---
WHEELED PATIENT TO RADIOLOGY ROOM FOR CT OF HEAD
[2022-01-01] MEDS ORDERED: IBUP-1955 PO (22:29)
[2022-01-02 02:07] VITALS: BP 130/77
--- NOTE | 2022-01-02 02:07 | NUR ---
Patient discharged to home in stable condition. Written and verbal after care instructions given. Patient verbalizes understanding of instruction.
== END 2022-01-02 02:08 | disposition home or self-care (01) ==
LOC: ER 20:08
DX: S00.81XA Abrasion of other part of head, initial encounter (principal); S50.311A Abrasion of right elbow, initial encounter; S00.01XA Abrasion of scalp, initial encounter; S60.511A Abrasion of right hand, initial encounter; M25.571 Pain in right ankle and joints of right foot; I10 Essential (primary) hypertension; E11.9 Type 2 diabetes mellitus without complications; E05.90 Thyrotoxicosis, unspecified without thyrotoxic crisis or storm; Z86.711 Personal history of pulmonary embolism; Z88.0 Allergy status to penicillin; Z79.899 Other long term (current) drug therapy; Z98.890 Other specified postprocedural states; Z79.84 Long term (current) use of oral hypoglycemic drugs; Z79.4 Long term (current) use of insulin; V87.8XXA Person injured in other specified noncollision transport accidents involving motor vehicle (traffic), initial encounter; Y93.89 Activity, other specified; Y92.89 Other specified places as the place of occurrence of the external cause; Y99.8 Other external cause status
CPT/HCPCS: 70450; 73080; 73130; 73590; 73610; 73630; 99284; A6403

== ENCOUNTER 2024-02-04 15:44 | Emergency (ER) | payer OTHER ==
[~2024-02-04] VITALS: Ht 162.6 cm; Wt 85.7 kg
[~2024-02-04 15:44] MED LIST changes: +IBUP-1955 PO
[2024-02-04 16:03] VITALS: TEMP 98.6
[2024-02-04] MEDS ORDERED: diphenhydrAMINE HCL 50 MG/ML VIAL ONE (16:33)
[2024-02-04] MEDS ORDERED: PROCHLORPERAZINE EDISYLATE 10 MG/2 ML VIAL ONE (16:33)
[2024-02-04] MEDS ORDERED: ONDANSETRON 4 MG TAB.RAPDIS ONE (16:34)
[2024-02-04] MEDS ORDERED: KETOROLAC TROMETHAMINE INJ 30 MG/ML VIAL ONE (16:34)
[2024-02-04] MEDS: KETOROLAC TROMETHAMINE INJ 60 MG/2 ML VIAL IM ONE (16:35)
[2024-02-04] MEDS: diphenhydrAMINE HCL 50 MG/ML VIAL IM ONE (16:35)
[2024-02-04] MEDS: PROCHLORPERAZINE EDISYLATE 10 MG/2 ML VIAL IM ONE (16:35)
[2024-02-04] MEDS: ONDANSETRON 4 MG TAB.RAPDIS SL ONE (16:35)
[2024-02-04] MEDS ORDERED: TRAM50TA2 PO (16:41)
[2024-02-04] MEDS ORDERED: PROC-11 PO (16:41)
[2024-02-04 17:11] VITALS: BP 120/72; O2SAT 98
== END 2024-02-04 17:12 | disposition home or self-care (01) ==
LOC: ER 15:50
DX: G43.909 Migraine, unspecified, not intractable, without status migrainosus (principal); R11.2 Nausea with vomiting, unspecified; I10 Essential (primary) hypertension; E11.9 Type 2 diabetes mellitus without complications; E05.90 Thyrotoxicosis, unspecified without thyrotoxic crisis or storm; Z88.0 Allergy status to penicillin; Z91.018 Allergy to other foods; Z79.899 Other long term (current) drug therapy
CPT/HCPCS: 99284; 96372 ×2; J0780; J1200; J1885; Q0162